=== PATIENT | male | born 1950 | race African-American/Black ===

== ENCOUNTER 2022-09-15 23:19 | Emergency (ER) | payer OTHER, MEDICAID ==
[~2022-09-15 23:19] MED LIST: ACET-73 PO; ALBMDI INH; AMIN30LI2 PO; ASCO500T20 PO; BISA10SU61 RC; CALC667T6 PO; CAT1PAT PO; CYAN100010 PO; DOCU-144 PO; DULO40CA2 PO; ERGO1250 PO; ERGO2500 PO; FER300L PO; FLUT1AER INH; GABA-529 PO; HYDR-3917 PO; IPRA4AER INH; LIP20 PO; MIDO5TAB4 PO; MIRT-91 PO; MOM PO; OSCD500 PO; OXCA150T5 PO; POLY15DR31 EACH EYE; PRED5TAB PO; PRIM50TA27 PO; SENN8.6T19 PO; TRAM50TA PO; VITA1CAP PO
--- NOTE | 2022-09-15 23:20 | NUR ---
[facility] STROKE CALLED
--- NOTE | 2022-09-15 23:51 | NUR ---
Received patient from EMT, Patient appeared not breathing, not responded to voice, and pain. ER-MD used ultrasound to detect heart activities, declared at 2321. Notified the general assistant @2340, patient is released by the general assistant. Notified [facility] @2350 also released the body. Called the assisted [facility] also stated patient has no family.
--- NOTE | 2022-09-16 00:19 | NUR ---
Reference #[id number] - [id number] for [facility]. OK to released the body.
== END 2022-09-16 00:30 ==
LOC: SED 23:31
DX: I46.9 Cardiac arrest, cause unspecified (principal); R41.82 Altered mental status, unspecified; Z91.041 Radiographic dye allergy status; Z79.899 Other long term (current) drug therapy
CPT/HCPCS: 99285